=== PATIENT | male | born 1950 | race Caucasian/White ===

== ENCOUNTER 2020-02-06 17:36 | Emergency (ER) | payer MEDICARE ==
[2020-02-06 17:43] VITALS: BP 128/75; PULSE 99; RESP 20; TEMP 98.4
--- NOTE | 2020-02-06 18:13 | XR ---
EXAMINATION TYPE: XR shoulder complete LT DATE OF EXAM: 02/06/2020 COMPARISON: NONE HISTORY: Shoulder pain TECHNIQUE: 3 views FINDINGS: There are large degenerative cysts in the greater tuberosity of the humerus. Glenohumeral j oint is intact. There is irregular cortex of the inferior glenoid labrum. The scapula is intact. AC j oint is intact. There are no pathologic calcifications at the greater tuberosity. IMPRESSION: There is some arthritic change at the inferior glenohumeral joint. Degenerative cyst in t he greater tuberosity. No fracture. There is coarse pulmonary interstitial density in the visualized left lungs that could relate to inte rstitial fibrosis.
[2020-02-06 18:57] LABS: Basophils % (A) 1 %; Eosinophils # (A) 0.2 k/uL (0-0.7); Eosinophils % (A) 2 %; HGB 9.7 gm/dL (13.0-17.5); Hypochromasia Slight; Lymphocytes # (A) 1.2 k/uL (1.0-4.8); Lymphocytes % (A) 16 %; MCHC 31.4 g/dL (31.0-37.0); MCV 89.2 fL (80.0-100.0); Mean Platelet Volume 7.1; Monocytes # (A) 0.3 k/uL (0-1.0); Monocytes % (A) 4 %; Neutrophils # (A) 5.2 k/uL (1.3-7.7); Neutrophils % (A) 74 %; Platelet Count 359 k/uL (150-450); RBC 3.47 m/uL (4.30-5.90); RDW 14.9 % (11.5-15.5); WBC 7.1 k/uL (3.8-10.6)
--- NOTE | 2020-02-06 19:01 | ED ---
Upper Extremity HPI - General Chief Complaint: Extremity Injury, Upper Stated Complaint: shoulder pain Time Seen by Provider: 02/06/20 17:45 Source: patient Mode of arrival: wheelchair Limitations: no limitations - History of Present Illness Initial Comments: 9-year-old male presenting for left shoulder pain. Patient states that he dislocated his shoulder while trying to lift something he states he relocated himself. Patient denies any numbness tingling loss of sensation of the shoulder he states he is localized pain to the joint he states he also has a history of rheumatoid arthritis. Patient states that he was moving stuff into a new apartment and has been doing a lot of heavy lifting and now is persistent left shoulder pain he denies a chest pain short of breath he laughed when I asked if he had chest pain he states that this is deathly from lifting things. Denies any neck pain times a falls or direct trauma denies any fevers. Patient does a nausea vomiting jaw pain. Patient states that he also like his hemoglobin checked as he was just discharged 5 days ago for GI bleed he states he's watching his stools denies any dark stools or bloody stools he states he has no symptoms denies any abdominal pain, weakness, sob or lightheadedness. Patient appears well and is very pleasant on arrival. - Related Data Allergies Allergy/AdvReac Type Severity Reaction Status Date / Time No Known Allergies Allergy Verified 02/06/20 17:43 Review of Systems ROS Statement: Those systems with pertinent positive or pertinent negative responses have been documented in the HPI. ROS Other: All systems not noted in ROS Statement are negative. Past Medical History Past Medical History: Coronary Artery Disease (CAD), GERD/Reflux, GI Bleed, Rheumatoid Arthritis (RA) Additional Past Medical History / Comment(s): back pain History of Any Multi-Drug Resistant Organisms: None Reported Past Surgical History: Heart Catheterization With Stent Past Psychological History: Anxiety Smoking Status: Former smoker Past Alcohol Use History: Rare Past Drug Use History: Marijuana General Exam - General Exam Comments Initial Comments: General: The patient is awake and alert, in no distress, and does not appear acutely ill. Eye: +3 mm pupils are equal, round and reactive to light, extra-ocular movements are intact. No nystagmus. There is normal conjunctiva bilaterally. No signs of icterus. Ears, nose, mouth and throat: There are moist mucous membranes and no oral lesions. Neck: The neck is supple, there is no tenderness or JVD. Cardiovascular: There is a regular rate and rhythm. Slight murmur, no rub or gallop is appreciated. Respiratory: Lungs are clear to auscultation, respirations are non-labored, breath sounds are equal. No wheezes, stridor, rales, or rhonchi. Musculoskeletal: Normal ROM, with tenderness of left shoulder. Crepitus palpated. No gross deformity. Strength 5/5. Sensation intact proximal and distal to injury site equal on opposing extremity. Radial pulses equal bilaterally 2+. Can make thumbs up, oppose small digits and thumb, finger crossed and ok sign. No wrist drop. NO erdness or swelling of joint. Neurological: A&O x 3. CN II-XII intact grossly, There are no obvious motor or sensory deficits. Coordination appears grossly intact. Speech is normal. Skin: Skin is warm and dry and no rashes or lesions are noted. Psychiatric: Cooperative, appropriate mood & affect, normal judgment. Limitations: no limitations Course Vital Signs 02/06/20 17:40 Temperature 98.4 F Pulse Rate 99 Respiratory 20 Rate Blood Pressure 128/75 O2 Sat by Pulse 97 Oximetry Medical Decision Making - Medical Decision Making XR (-). No symptoms but CBC drawn as patietn has recent gi bleed. he states at that time hgb was 5. Hgb 9.7. Patient appears nontoxic, not tachycardic, denies bloody or dark stools. Patient neurovascular intact and pain is reproducible at this time feel patient is stable for discharge after discussing case by attending provider Dr. Guerrero. Patient is placed in sling for comfort given a Tylenol 3 starter pack patient discharged appearing well. Recommend pcp and orthopedic f/u. - Lab Data Result diagrams: 02/06/20 18:20 Lab Results 02/06/20 Range/Units 18:20 WBC 7.1 (3.8-10.6) k/uL RBC 3.47 L (4.30-5.90) m/uL Hgb 9.7 L (13.0-17.5) gm/dL Hct 31.0 L (39.0-53.0) % MCV 89.2 (80.0-100.0) fL MCH 28.0 (25.0-35.0) pg MCHC 31.4 (31.0-37.0) g/dL RDW 14.9 (11.5-15.5) % Plt Count 359 (150-450) k/uL Neutrophils % 74 % Lymphocytes % 16 % Monocytes % 4 % Eosinophils % 2 % Basophils % 1 % Neutrophils # 5.2 (1.3-7.7) k/uL Lymphocytes # 1.2 (1.0-4.8) k/uL Monocytes # 0.3 (0-1.0) k/uL Eosinophils # 0.2 (0-0.7) k/uL Basophils # 0.0 (0-0.2) k/uL Hypochromasia Slight Disposition Clinical Impression: Left shoulder pain, Anemia, Degenerative arthritis of left shoulder region Disposition: HOME SELF-CARE Condition: Good Instructions (If sedation given, give patient instructions): Shoulder Pain (ED) Additional Instructions: Please use medication as discussed. Please follow-up with family doctor in the next 2 days, repeat HgB which is currently 9.7. Please return to emergency room if the symptoms increase or worsen or for any other concerns. Is patient prescribed a controlled substance at d/c from ED?: No Referrals: Nonstaff,Physician [Primary Care Provider] - 1-2 days Time of Disposition: 19:01
[2020-02-06] MEDS ORDERED: ACET/COD 300 MG/30 MG STARTER PACK 6 TAB BTL PO STA (19:24)
== END 2020-02-06 19:30 | disposition home or self-care (01) ==
LOC: EC 17:36
DX: M19.012 Primary osteoarthritis, left shoulder (principal); D64.9 Anemia, unspecified; Z87.891 Personal history of nicotine dependence
CPT/HCPCS: 36415; 85025; 99283